=== PATIENT | female | born 1975 | race Caucasian/White ===

== ENCOUNTER 2021-02-20 14:21 | Inpatient (IN) | payer MEDICAID, MEDICARE, OTHER, SELFPAY ==
[~2021-02-20] VITALS: Ht 160 cm; Wt 73.5 kg
[~2021-02-20 14:21] MED LIST: ACET-3207 PO; CHLO50TA41 PO; FERR325T22 PO; HYDR-4031 PO; LORA-1000 PO; MAAES30 PO; METO-558 PO; MOM30 PO; RISP0.5T39 PO; SERT-158 PO; ZOLP-280 PO
[2021-02-20 16:27] LABS: BASOPHILS % (AUTO) 0.3 % (0.0-2.0); EOSINOPHILS % (AUTO) 0.1 % (1.0-6.0); HEMATOCRIT 27.6 % (36-46); HEMOGLOBIN 8.5 g/dL (12.0-16.0); LYMPHOCYTES # (AUTO) 1.1 K/uL (1.0-4.8); LYMPHOCYTES % (AUTO) 29.5 % (22.0-44.0); MEAN CORPUSCULAR HEMOGLOBIN 19.8 pg (26.0-34.0); MEAN CORPUSCULAR HGB CONC 30.9 G/dL (31.0-37.0); MEAN CORPUSCULAR VOLUME 64 fL (80-100); MONOCYTES # (AUTO) 0.4 K/uL (0.1-1.0); MONOCYTES % (AUTO) 12.5 % (2.0-9.0); NEUTROPHILS # (AUTO) 2.1 K/uL (1.8-7.7); NEUTROPHILS % (AUTO) 57.6 % (40.0-70.0); PLATELET COUNT (AUTO) 245 K/uL (150-450); RED CELL DISTRIBUTION WIDTH 21.3 % (11.5-14.5)
[2021-02-20 16:33] LABS: ANION GAP 11 mmol/L (8-16); CALCIUM, TOTAL 8.5 mg/dL (8.8-10.5); CARBON DIOXIDE 24 mmol/L (22-29); CHLORIDE 101 mmol/L (98-107); CREATININE 0.66 mg/dL (0.60-1.30); GLOMERULAR FILTR. RATE CALC > 60 mL/min (>60); GLUCOSE,RANDOM 87 mg/dL (70-110); POTASSIUM 4.2 mmol/L (3.5-5.1); SODIUM SERUM 136 mmol/L (136-145); UREA NITROGEN, BLOOD 13 mg/dL (7-18)
[2021-02-20 16:44] LABS: ALANINE AMINOTRANSFERASE 27 U/L (12-78); ALBUMIN 3.9 g/dL (3.4-5.0); ALKALINE PHOSPHATASE 73 U/L (46-116); ASPARTATE AMINOTRANSFERASE 16 U/L (15-37); BILIRUBIN,TOTAL 0.3 mg/dL (0.1-1.0); HCG,QUANTITATIVE < 1 mIU/mL (0-6); TOTAL PROTEIN, SERUM 7.7 g/dL (6.4-8.2)
[2021-02-20 16:45] LABS: PLATELET MORPHOLOGY COMMENT LARGE PLTS PRESENT
[2021-02-20 17:14] LABS: PATHOLOGY REVIEW, DIFF YES
[2021-02-20 19:03] LABS: COVID AG,FIA SOURCE NASOPHARYNGEAL
[2021-02-20] MEDS ORDERED: HALOPERIDOL 5 MG TABLET PO PRN (20:00)
[2021-02-20 21:37] VITALS: BP 115/76
[2021-02-21] MEDS: LORazepam 2 MG TABLET PO PRN ×2 (06:00→06:04)
[2021-02-21 06:34] VITALS: BP 152/100
[2021-02-21 06:48] LABS: CHOL/HDL RATIO 6.1 (3.9-5.7)
[2021-02-21] MEDS ORDERED: MAG HYDROX/AL HYDROX/SIMETH ES 30 ML SUSPENSION UDCUP PO PRN (07:00)
[2021-02-21] MEDS ORDERED: CloNIDine HCL 0.1 MG TABLET PO PRN (07:00)
[2021-02-21] MEDS ORDERED: PETROLATUM,WHITE 28 GM JELLY TP PRN (07:00)
[2021-02-21] MEDS ORDERED: ONDANSETRON HCL 4 MG TABLET PO PRN (07:00)
[2021-02-21] MEDS ORDERED: ACETAMINOPHEN 325 MG TABLET PO PRN (07:00)
[2021-02-21] MEDS ORDERED: BACITRACIN 28 GM OINTMENT TP PRN (07:00)
[2021-02-21] MEDS ORDERED: DOCUSATE SODIUM 100 MG CAPSULE PO PRN (07:00)
[2021-02-21] MEDS ORDERED: BENZOCAINE/MENTHOL LOZENGE PO PRN (07:00)
[2021-02-21] MEDS ORDERED: ALBUTEROL SULFATE HFA 90 MCG/PUFF 8 GM INHALER IH PRN (07:00)
[2021-02-21] MEDS ORDERED: MAGNESIUM HYDROXIDE SUSPENSION 30 ML UDCUP PO PRN (07:00)
[2021-02-21] MEDS ORDERED: OMEPRAZOLE 20 MG CAPSULE PO PRN (07:00)
[2021-02-21] MEDS ORDERED: LOPERAMIDE HCL 2 MG CAPSULE PO PRN (07:00)
[2021-02-21] MEDS: AmLODIPine BESYLATE 5 MG TABLET PO SCH (08:03)
[2021-02-21] MEDS: FERROUS SULFATE 325 MG EC TABLET PO SCH ×2 (08:03→16:57)
[2021-02-21 08:04] VITALS: BP 143/77
[2021-02-21] MEDS: IBUPROFEN 600 MG TABLET PO PRN (08:04)
[2021-02-21 08:06] LABS: HIV 1-2 SCREEN 4TH GEN W/RFLX Non Reactive (Non Reactive)
[2021-02-21 09:03] VITALS: BP 149/76
[2021-02-21] MEDS: METOPROLOL SUCCINATE 50 MG ER TABLET PO SCH (09:18)
[2021-02-21 16:00] VITALS: BP 109/71
[2021-02-21] MEDS: RisperiDONE 0.5 MG TABLET PO SCH (20:39)
[2021-02-21] MEDS: ZOLPIDEM TARTRATE 10 MG TABLET PO PRN (21:45)
[2021-02-22 05:42] LABS: GLUCOMETER DEV NAME(LOC) 3E.I 2; GLUCOSE,POINT OF CARE 96 MG/DL (70-110)
[2021-02-22] MEDS: FERROUS SULFATE 325 MG EC TABLET PO SCH ×3 (06:42→18:07)
[2021-02-22] MEDS: IBUPROFEN 600 MG TABLET PO PRN (06:50)
[2021-02-22 06:54] VITALS: BP 112/65
[2021-02-22] MEDS: METOPROLOL SUCCINATE 50 MG ER TABLET PO SCH (08:43)
[2021-02-22] MEDS: SERTRALINE HCL 50 MG TABLET PO SCH (08:44)
[2021-02-22] MEDS: AmLODIPine BESYLATE 5 MG TABLET PO SCH (08:44)
[2021-02-22 09:25] VITALS: BP 112/68
[2021-02-22 16:14] VITALS: BP 114/64
[2021-02-22] MEDS: RisperiDONE 0.5 MG TABLET PO SCH (21:00)
[2021-02-23] MEDS: FERROUS SULFATE 325 MG EC TABLET PO SCH ×2 (07:06→16:41)
[2021-02-23] MEDS: RIFABUTIN 150 MG CAPSULE PO SCH (08:32)
[2021-02-23] MEDS: SERTRALINE HCL 50 MG TABLET PO SCH (08:32)
[2021-02-23] MEDS: AmLODIPine BESYLATE 5 MG TABLET PO SCH (08:32)
[2021-02-23] MEDS: METOPROLOL SUCCINATE 50 MG ER TABLET PO SCH (08:32)
[2021-02-23 16:00] VITALS: BP 129/72
[2021-02-23] MEDS: RisperiDONE 0.5 MG TABLET PO SCH (20:32)
[2021-02-23] MEDS: ZOLPIDEM TARTRATE 10 MG TABLET PO PRN (23:42)
[2021-02-24] MEDS: FERROUS SULFATE 325 MG EC TABLET PO SCH ×2 (06:42→16:57)
[2021-02-24] MEDS: AmLODIPine BESYLATE 5 MG TABLET PO SCH (09:34)
[2021-02-24] MEDS: SERTRALINE HCL 50 MG TABLET PO SCH (09:34)
[2021-02-24] MEDS: METOPROLOL SUCCINATE 50 MG ER TABLET PO SCH (09:35)
[2021-02-24] MEDS: RIFABUTIN 150 MG CAPSULE PO SCH (09:35)
[2021-02-24 10:19] VITALS: BP 117/67
[2021-02-24 16:10] VITALS: BP 115/62
[2021-02-24] MEDS: LORazepam 2 MG TABLET PO PRN (17:44)
[2021-02-24] MEDS: RisperiDONE 0.5 MG TABLET PO SCH (22:18)
[2021-02-25] MEDS: FERROUS SULFATE 325 MG EC TABLET PO SCH ×3 (08:19→16:23)
[2021-02-25] MEDS: AmLODIPine BESYLATE 5 MG TABLET PO SCH (08:19)
[2021-02-25] MEDS: RIFABUTIN 150 MG CAPSULE PO SCH (08:19)
[2021-02-25] MEDS: METOPROLOL SUCCINATE 50 MG ER TABLET PO SCH (08:19)
[2021-02-25] MEDS: OMEGA-3/DHA/EPA/FISH OIL 1,000 MG CAPSULE PO SCH (08:19)
[2021-02-25] MEDS: DOCUSATE SODIUM 100 MG CAPSULE PO SCH (08:20)
[2021-02-25] MEDS: SERTRALINE HCL 50 MG TABLET PO SCH (08:20)
[2021-02-25 08:23] VITALS: BP 103/59
[2021-02-25] MEDS: IBUPROFEN 600 MG TABLET PO PRN ×2 (08:26→16:24)
[2021-02-25 16:40] VITALS: BP 104/63
[2021-02-25 16:42] VITALS: BP 123/66
[2021-02-25] MEDS: RisperiDONE 0.5 MG TABLET PO SCH (20:38)
[2021-02-25] MEDS: ZOLPIDEM TARTRATE 10 MG TABLET PO PRN (20:39)
[2021-02-26 06:05] VITALS: BP 103/63
[2021-02-26] MEDS: IBUPROFEN 600 MG TABLET PO PRN (06:10)
[2021-02-26 06:48] LABS: BASOPHILS % (AUTO) 0.2 % (0.0-2.0); EOSINOPHILS % (AUTO) 0 % (1.0-6.0); HEMATOCRIT 26.2 % (36-46); HEMOGLOBIN 7.9 g/dL (12.0-16.0); LYMPHOCYTES # (AUTO) 0.6 K/uL (1.0-4.8); LYMPHOCYTES % (AUTO) 14.3 % (22.0-44.0); MEAN CORPUSCULAR HEMOGLOBIN 20.1 pg (26.0-34.0); MEAN CORPUSCULAR HGB CONC 30.3 G/dL (31.0-37.0); MEAN CORPUSCULAR VOLUME 66 fL (80-100); MONOCYTES # (AUTO) 0.6 K/uL (0.1-1.0); MONOCYTES % (AUTO) 12.9 % (2.0-9.0); NEUTROPHILS # (AUTO) 3.1 K/uL (1.8-7.7); NEUTROPHILS % (AUTO) 72.6 % (40.0-70.0); PLATELET COUNT (AUTO) 269 K/uL (150-450); RED BLOOD CELL COUNT(AUTO) 3.95 MIL/uL (4.00-5.20); RED CELL DISTRIBUTION WIDTH 21.8 % (11.5-14.5)
[2021-02-26 07:31] LABS: ALANINE AMINOTRANSFERASE 31 U/L (12-78); ALBUMIN 3.1 g/dL (3.4-5.0); ALKALINE PHOSPHATASE 76 U/L (46-116); ANION GAP 10 mmol/L (8-16); ASPARTATE AMINOTRANSFERASE 15 U/L (15-37); BILIRUBIN,TOTAL 0.4 mg/dL (0.1-1.0); CALCIUM, TOTAL 8.1 mg/dL (8.8-10.5); CARBON DIOXIDE 24 mmol/L (22-29); CHLORIDE 105 mmol/L (98-107); CREATININE 0.78 mg/dL (0.60-1.30); GLOMERULAR FILTR. RATE CALC > 60 mL/min (>60); GLUCOSE,RANDOM 99 mg/dL (70-110); POTASSIUM 3.8 mmol/L (3.5-5.1); SODIUM SERUM 139 mmol/L (136-145); TOTAL PROTEIN, SERUM 6.7 g/dL (6.4-8.2); UREA NITROGEN, BLOOD 16 mg/dL (7-18)
[2021-02-26 08:52] VITALS: BP 102/56
[2021-02-26] MEDS: DOCUSATE SODIUM 100 MG CAPSULE PO SCH (09:46)
[2021-02-26] MEDS: SERTRALINE HCL 50 MG TABLET PO SCH (09:46)
[2021-02-26] MEDS: METOPROLOL SUCCINATE 50 MG ER TABLET PO SCH (09:46)
[2021-02-26] MEDS: OMEGA-3/DHA/EPA/FISH OIL 1,000 MG CAPSULE PO SCH (09:46)
[2021-02-26] MEDS: AmLODIPine BESYLATE 5 MG TABLET PO SCH (09:47)
[2021-02-26] MEDS: RIFABUTIN 150 MG CAPSULE PO SCH (09:47)
[2021-02-26] MEDS: FERROUS SULFATE 325 MG EC TABLET PO SCH ×2 (09:47→12:30)
[2021-02-26] MEDS ORDERED: AMLO-257 PO (13:23)
[2021-02-26] MEDS ORDERED: DOCU-275 PO (13:23)
[2021-02-26] MEDS ORDERED: OMEG-135 PO (13:25)
[2021-02-26] MEDS ORDERED: RIFAB150 PO (13:26)
== END 2021-02-26 14:55 | disposition home or self-care (01) | DRG 750 ==
LOC: EMS 14:34 → 3EI 19:49
PROVIDERS: ADMIT Psychiatry & Neurology Psychiatry; ATTEND Psychiatry & Neurology Psychiatry
DX: F25.9 Schizoaffective disorder, unspecified (principal); F33.2 Major depressive disorder, recurrent severe without psychotic features; R45.851 Suicidal ideations; E78.5 Hyperlipidemia, unspecified; D64.9 Anemia, unspecified; I10 Essential (primary) hypertension; F10.10 Alcohol abuse, uncomplicated; F41.9 Anxiety disorder, unspecified; Z20.822 Contact with and (suspected) exposure to COVID-19; Z59.0 Homelessness; Z72.0 Tobacco use
CPT/HCPCS: 71045; 80053; 80061; 82962; 83735; 84100; 84702; 85025; 87389; 87426; 99285; G0480; Q0162; 36415-L1; 36415-TC